=== PATIENT | female | born 1985 | race Asian ===

== ENCOUNTER 2016-10-17 02:30 | Inpatient (IN) | payer OTHER ==
[2016-10-17] VITALS (26 sets, daily range): BP systolic 95–144; BP diastolic 51–90
[~2016-10-17] VITALS: Ht 157.5 cm; Wt 83.0 kg
[2016-10-17 04:15] LABS: EOSINOPHIL (%) 0.7 % (0-5); EOSINOPHIL COUNT 0.1 K/uL (0-0.3); IMMATURE GRANULOCYTE (%) 0.7 % (0.0-0.7); IMMATURE GRANULOCYTE COUNT 0.1 K/uL; INSTRUMENT ABS NEUTROPHIL CT 7.7 K/uL; LYMPHOCYTE COUNT 2.2 K/uL (1.0-2.8); MCH 33.1 PG (29.0-34.0); MCHC 34.4 G/DL (30.0-36.0); MEAN PLAT.VOLUME 9.1 uM^3 (9.5-12.4); MONOCYTE (%) 5.5 % (3-12); MONOCYTE COUNT 0.6 K/uL (0-0.8); NEUTROPHIL (%) 72.5 % (45-76); NEUTROPHIL COUNT 7.7 K/uL (1.8-6.4); PLATELET COUNT 214 K/uL (156-360); RBC DIS.WIDTH-CV 12.5 % (11.8-14.6); RBC DIS.WIDTH-SD 43.9 % (39-53); RED BLOOD COUNT 3.54 M/uL (3.80-5.20); WHITE BLOOD COUNT 10.6 K/uL (4.1-10.2)
[2016-10-18 07:25] VITALS: BP 106/64
[2016-10-18 15:35] VITALS: BP 113/85
[2016-10-18 22:56] VITALS: BP 134/78
[2016-10-19 07:06] VITALS: BP 122/72
[2016-10-19] MEDS ORDERED: MOTRIN800 MG PO (13:10)
== END 2016-10-19 15:44 | disposition home or self-care (01) | DRG 775 ==
LOC: LDRP-OP 02:30 → 2WEST 02:31 → LDRP-OP 11-10 15:08
PROVIDERS: Obstetrics & Gynecology Gynecology
PROC: 00HU33Z Insertion of Infusion Device into Spinal Canal, Percutaneous Approach (ICD-10-PCS; principal; 2016-10-17)
PROC: 0KQM0ZZ Repair Perineum Muscle, Open Approach (ICD-10-PCS; principal; 2016-10-17)
PROC: 10D07Z6 Extraction of Products of Conception, Vacuum, Via Natural or Artificial Opening (ICD-10-PCS; principal; 2016-10-17)
PROC: 3E0S3CZ (ICD-10-PCS; principal; 2016-10-17)
DX: O70.1 Second degree perineal laceration during delivery (principal); O99.824 Streptococcus B carrier state complicating childbirth; Z37.0 Single live birth; O77.0 Labor and delivery complicated by meconium in amniotic fluid; O48.0 Post-term pregnancy; Z3A.41 41 weeks gestation of pregnancy; O76 Abnormality in fetal heart rate and rhythm complicating labor and delivery; O34.13 Maternal care for benign tumor of corpus uteri, third trimester; O69.81X0 Labor and delivery complicated by cord around neck, without compression, not applicable or unspecified
CPT/HCPCS: 85025; 85025 91; C1755; J3010; J7120